=== PATIENT | female | born 1995 | race Caucasian/White ===

== ENCOUNTER 2017-01-07 06:03 | Emergency (ER) | payer MEDICAID ==
[~2017-01-07] VITALS: Ht 167.6 cm; Wt 70.0 kg
[~2017-01-07 06:03] MED LIST: POLY10O LEFT EYE
[2017-01-07 06:05] VITALS: BP 123/63; PULSE 116; RESP 16; TEMP 98
[2017-01-07 06:11] VITALS: O2SAT 98
[2017-01-07] MEDS ORDERED: ZOFR4TAB3 SL (10:05)
[2017-01-07] MEDS ORDERED: TRAM50TA PO (10:05)
[2017-01-07] MEDS ORDERED: NAPR500T PO (10:05)
[2017-01-07] MEDS ORDERED: CEPH-460 PO (10:05)
== END 2017-01-07 07:07 | disposition left against medical advice (07) ==
LOC: NED 06:03
DX: Z53.21 Procedure and treatment not carried out due to patient leaving prior to being seen by health care provider (principal)
CPT/HCPCS: 99281

== ENCOUNTER 2017-01-07 07:14 | Emergency (ER) | payer MEDICAID ==
[~2017-01-07] VITALS: Ht 157.5 cm; Wt 60.1 kg
[2017-01-07 07:15] VITALS: BP 118/72; PULSE 111; RESP 16; TEMP 99.3; O2SAT 97
[2017-01-07] MEDS ORDERED: ONDANSETRON HCL 4 MG/2 ML VIAL IVP ONE (07:45)
[2017-01-07] MEDS ORDERED: SODIUM CHLORIDE 0.9% FLUSH 10 ML FLUSH IV FLUSH PRN (07:45)
[2017-01-07] MEDS ORDERED: MORPHINE SULFATE 4 MG/ML INJ IV PUSH ONE ×2 (07:45→08:30)
[2017-01-07 07:57] VITALS: O2SAT 98
[2017-01-07 07:58] LABS: AUTOMATED NEUTROPHIL # 9.9 TH/MM3 (1.8-7.7); BASOPHIL # 0.1 TH/MM3 (0-0.2); BASOPHIL % 1.3 % (0.0-2.0); EOSINOPHIL % 0.3 % (0.0-4.0); LYMPH % 4.4 % (9.0-44.0); LYMPHOCYTE # 0.5 TH/MM3 (1.0-4.8); MEAN CELL VOLUME 93.3 FL (80.0-100.0); MEAN CORPUSCULAR HEMOGLOBIN 31.5 PG (27.0-34.0); MEAN CORPUSCULAR HGB CONC 33.7 % (32.0-36.0); MONO % 3.5 % (0.0-8.0); NEUT % 90.5 % (16.0-70.0); PLATELET COUNT 276 TH/MM3 (150-450); RED BLOOD COUNT 3.54 MIL/MM3 (4.00-5.30); RED CELL DISTRIBUTION WIDTH 12.4 % (11.6-17.2); WHITE BLOOD COUNT 10.9 TH/MM3 (4.0-11.0)
--- NOTE | 2017-01-07 07:58 | PD ---
HPI Chief Complaint: Back/ Neck Pain or Injury Time Seen by Provider: 07:26 Travel History International Travel<30 days: No Contact w/Intl Traveler<30days: No Traveled to known affect area: No History of Present Illness HPI This is a 21-year-old female who presents to the emergency department with right sided flank pain, constant for 2 days, worse with walking, severe, associated with nausea this morning. She denies any dysuria, hematuria, vaginal discharge, fevers or chills. She has had one sexual partner in the past 6 months. She's never had pain like this before. She denies any history of IV drug use. She denies any injury. PFSH Past Medical History Hx Anticoagulant Therapy: No Diabetes: No Immunizations Current: Yes ?: Unknown : 2 Para: 1 Social History Alcohol Use: No Tobacco Use: Yes (1/2 PPD) Substance Use: No Allergies-Medications (Allergen,Severity, Reaction): Coded Allergies: No Known Allergies (Unverified , 01/07/17) Reported Meds & Prescriptions Reported Meds & Active Scripts Active No Active Prescriptions or Reported Medications Review of Systems Except as stated in HPI: all other systems reviewed are Neg Physical Exam Narrative GENERAL: Uncomfortable appearing, tearful SKIN: Warm and dry. HEAD: Atraumatic. Normocephalic. EYES: Pupils equal and round. No injection or drainage. ENT: Moist mucous membranes NECK: Trachea midline. CARDIOVASCULAR: Regular rate and rhythm. No murmur appreciated. RESPIRATORY: Clear to auscultation. Breath sounds equal bilaterally. GASTROINTESTINAL: Abdomen soft, tender to palpation in the right lower quadrant and suprapubic region with no rebound or guarding. : Right CVA tenderness. MUSCULOSKELETAL: No obvious deformities. NEUROLOGICAL: Awake and alert. No obvious cranial nerve deficits. Moving all extremities. PSYCHIATRIC: Appropriate mood and affect; insight and judgment normal. Data Data Last Documented VS Vital Signs Date Time Temp Pulse Resp B/P Pulse Ox O2 Delivery O2 Flow Rate FiO2 01/07/17 09:48 98.8 95 18 138/48 98 Room Air Orders Complete Blood Count With Diff (01/07/17 07:31) Comprehensive Metabolic Panel (01/07/17 07:31) Urinalysis - C+S If Indicated (01/07/17 07:31) Iv Access Insert/Monitor (01/07/17 07:31) Ecg Monitoring (01/07/17 07:31) Oximetry (01/07/17 07:31) Morphine Inj (Morphine Inj) (01/07/17 07:45) Ondansetron Inj (Zofran Inj) (01/07/17 07:45) Sodium Chlor 0.9% 1000 Ml Inj (Ns 1000 M (01/07/17 07:31) Sodium Chloride 0.9% Flush (Ns Flush) (01/07/17 07:45) Ed Urine Pregnancytest Poc (01/07/17 07:31) Urine Culture (01/07/17 07:45) Ceftriaxone Inj (Rocephin Inj) (01/07/17 08:15) Morphine Inj (Morphine Inj) (01/07/17 08:30) Ketorolac Inj (Toradol Inj) (01/07/17 08:30) Labs Laboratory Tests Test 01/07/17 01/07/17 07:45 07:50 Urine Collection Type CLEAN CATCH Urine Color YELLOW Urine Turbidity MOD Urine pH 5.5 Urine Specific [place] 1.030 Urine Protein 100 mg/dL Urine Glucose (UA) 100 mg/dL Urine Ketones NEG mg/dL Urine Occult Blood LARGE Urine Nitrite POS Urine Bilirubin NEG Urine Leukocyte Esterase MOD Urine RBC 10-14 /hpf Urine WBC 100-200 /hpf Urine WBC Clumps MOD Urine Squamous Epithelial 0-5 /hpf Cells Urine Amorphous Sediment FEW Urine Bacteria MOD /hpf Microscopic Urinalysis Comment CULTURE INDICATED Urine Collection Time 0745 White Blood Count 10.9 TH/MM3 Red Blood Count 3.54 MIL/MM3 Hemoglobin 11.1 GM/DL Hematocrit 33.0 % Mean Corpuscular Volume 93.3 FL Mean Corpuscular Hemoglobin 31.5 PG Mean Corpuscular Hemoglobin 33.7 % Concent Red Cell Distribution Width 12.4 % Platelet Count 276 TH/MM3 Mean Platelet Volume 7.6 FL Neutrophils (%) (Auto) 90.5 % Lymphocytes (%) (Auto) 4.4 % Monocytes (%) (Auto) 3.5 % Eosinophils (%) (Auto) 0.3 % Basophils (%) (Auto) 1.3 % Neutrophils # (Auto) 9.9 TH/MM3 Lymphocytes # (Auto) 0.5 TH/MM3 Monocytes # (Auto) 0.4 TH/MM3 Eosinophils # (Auto) 0.0 TH/MM3 Basophils # (Auto) 0.1 TH/MM3 CBC Comment DIFF FINAL Differential Comment Sodium Level 142 MEQ/L Potassium Level 3.6 MEQ/L Chloride Level 110 MEQ/L Carbon Dioxide Level 22.5 MEQ/L Anion Gap 10 MEQ/L Blood Urea Nitrogen 10 MG/DL Creatinine 0.73 MG/DL Estimat Glomerular Filtration 99 ML/MIN Rate Random Glucose 151 MG/DL Calcium Level 8.8 MG/DL Total Bilirubin 0.5 MG/DL Aspartate Amino Transf 8 U/L (AST/SGOT) Alanine Aminotransferase 12 U/L (ALT/SGPT) Alkaline Phosphatase 50 U/L Total Protein 6.9 GM/DL Albumin 3.5 GM/DL [facility] Medical Decision Making Medical Screen Exam Complete: Yes Emergency Medical Condition: Yes Interpretation(s) Temperature is 99.3, tachycardia Mild anemia White count is 10.9 90% neutrophils Electrolytes are reassuring Urinalysis: Urinary tract infection Differential Diagnosis Pyelonephritis, nephrolithiasis, appendicitis, ectopic , ovarian cyst rupture Narrative Course This is a 21-year-old female who presents to the emergency department with right sided flank pain. She is placed on a monitor and an IV was established. Labs are obtained which are reassuring. Urinalysis confirms likely pyelonephritis. She is given a dose of IV ceftriaxone, IV hydration and antiemetics as well as 2 doses of pain control and feels much better. I reevaluated her several times. Patient will be discharged on oral antibiotics. I did instruct her that if she at all feels worse she should return to the emergency department. Diagnosis Primary Impression: Pyelonephritis Patient Instructions: General Instructions Additional Instructions: If you develop fever, persistent vomiting, back pain, or inability to eat return to the emergency department as your urine infection may have progressed to a kidney infection. Complete your antibiotics as prescribed. Stay well hydrated with Gatorade or water. Followup with your primary care physician in 2-3 days if your symptoms have not resolved. Med/Other Pt SpecificInfo: Prescription(s) given Scripts Naproxen 500 Mg [id number] Mg PO BID PRN (PAIN SCALE 4 TO 10) #10 TAB Ref 0 Prov:Trang Pearson MD 01/07/17 Tramadol 50 Mg Tab50 Mg PO Q6H PRN (PAIN) #10 TAB Ref 0 Prov:Trang Paerson MD 01/07/17 Ondansetron Odt (Zofran Odt)4 Mg Tab4 Mg SL Q6HR PRN (Nausea/Vomiting) #10 TAB Ref 0 Prov:Trang Pearson MD 01/07/17 Cephalexin (Keflex)500 Mg [id number] Mg PO Q12H 7 Days Ref 0 Prov:Trang Pearson MD 01/07/17 Disposition: 01 DISCHARGE HOME Condition: Stable Trang Pearson MD Jan 07, 2017 07:58
[2017-01-07 07:59] LABS: BLOOD, URINE LARGE (NEG); GLUCOSE,URINE 100 mg/dL (NEG); KETONE, URINE NEG (NEG); PH, URINE 5.5 (5.0-8.5)
[2017-01-07 08:00] LABS: NITRITE,URINE POS (NEG)
[2017-01-07] MEDS: SODIUM CHLOR 0.9% 1000 ML INJ 1,000 ML IV SCH ×2 (08:02→08:30)
[2017-01-07 08:03] LABS: HEMO FLAGS DIFF FINAL
[2017-01-07 08:07] LABS: CHLORIDE 110 MEQ/L (98-107); POTASSIUM 3.6 MEQ/L (3.5-5.1); SODIUM (NA) 142 MEQ/L (136-145)
[2017-01-07 08:07] LABS: METHOD OF COLLECTION CLEAN CATCH; URINE COLOR YELLOW (YELLW/STRAW)
[2017-01-07 08:08] LABS: BACTERIA, URINE MOD /hpf; COMMENT (UR) CULTURE INDICATED; CULTURE IF INDICATED CULTURE INDICATED; SQUAMOUS EPITHELIAL CELL URINE 0-5 /hpf (0-5); WBC, URINE 100-200 /hpf (0-5)
[2017-01-07 08:11] LABS: ANION GAP 10 MEQ/L (5-15); BICARBONATE 22.5 MEQ/L (21.0-32.0); BLOOD UREA NITROGEN 10 MG/DL (7-18)
[2017-01-07 08:14] LABS: ALT (GPT) 12 U/L (10-53); AST (GOT) 8 U/L (15-37); GLOMERULAR FILTRATION RATE 99 ML/MIN (>89)
[2017-01-07 08:15] LABS: TOTAL BILIRUBIN ADULT 0.5 MG/DL (0.2-1.0)
[2017-01-07] MEDS ORDERED: cefTRIAXone INJ 1,000 MG in SODIUM CHLORIDE 0.9% INJ 100 ML IV ONE (08:15)
[2017-01-07 08:17] LABS: ALKALINE PHOSPHATASE 50 U/L (45-117)
[2017-01-07] MEDS ORDERED: KETOROLAC TROMETHAMINE 30 MG/ML (IVP) VIAL IV PUSH ONE (08:30)
[2017-01-07 08:51] VITALS: BP 91/44; PULSE 74; RESP 18; O2SAT 98
[2017-01-07 09:48] VITALS: BP 138/48; PULSE 95; RESP 18; TEMP 98.8; O2SAT 98
[2017-01-07] MEDS ORDERED: CEPH-460 PO (10:05)
[2017-01-07] MEDS ORDERED: NAPR500T PO (10:05)
[2017-01-07] MEDS ORDERED: ZOFR4TAB3 SL (10:05)
[2017-01-07] MEDS ORDERED: TRAM50TA PO (10:05)
== END 2017-01-07 10:27 | disposition home or self-care (01) ==
LOC: PHEFT 07:14
DX: N12 Tubulo-interstitial nephritis, not specified as acute or chronic (principal); F17.210 Nicotine dependence, cigarettes, uncomplicated
CPT/HCPCS: 80053; 81001; 84703; 85025; 87077; 87086; 87186; 96361; 96365; 96375; 96376; 99284; J0696; J1885; J2270; J2405; J7030

== ENCOUNTER 2017-01-19 10:32 | Emergency (ER) | payer MEDICAID ==
[~2017-01-19] VITALS: Ht 157.5 cm; Wt 55.5 kg
[~2017-01-19 10:32] MED LIST changes: +CEPH-460 PO; +NAPR500T PO; -POLY10O LEFT EYE; +TRAM50TA PO; +ZOFR4TAB3 SL
[2017-01-19 10:36] VITALS: BP 97/66; PULSE 119; RESP 18; TEMP 100; O2SAT 98
[2017-01-19] MEDS ORDERED: SODIUM CHLOR 0.9% 1000 ML INJ 1,000 ML IV SCH (10:50)
[2017-01-19 10:58] LABS: BLOOD, URINE SMALL (NEG); GLUCOSE,URINE NEG (NEG); KETONE, URINE NEG (NEG); NITRITE,URINE NEG (NEG)
[2017-01-19] MEDS ORDERED: KETOROLAC TROMETHAMINE 30 MG/ML (IVP) VIAL IVP ONE (11:00)
[2017-01-19] MEDS ORDERED: ONDANSETRON HCL 4 MG/2 ML VIAL IVP ONE (11:00)
--- NOTE | 2017-01-19 11:00 | PD ---
HPI Chief Complaint: Flank/Kidney Pain Time Seen by Provider: 10:45 Travel History International Travel<30 days: No Contact w/Intl Traveler<30days: No Traveled to known affect area: No History of Present Illness HPI 21-year-old female complains of right flank pain. Patient states the pain started yesterday. Patient was seen in emergency room January 07, 2017 for right flank pain. Diagnosis was pyelonephritis. Patient was given IV Rocephin and prescription for Keflex, Naprosyn, tramadol and Zofran. Patient states that the symptoms resolved completely subsequently. Patient started having right flank pain since yesterday. Patient denies dysuria or frequency. Patient denies any fever chills. Patient denies any nausea vomiting diarrhea. Patient states that she has occasionally dry cough. Patient denies any vaginal discharge or bleeding. On a scale of 1-10 the pain is a 10. Urine culture last visit show positive for Escherichia coli which sensitive to all antibiotics. PFSH Past Medical History Hx Anticoagulant Therapy: No Diabetes: No Immunizations Current: Yes ?: Not LMP: 2 WEEKS AGO : 2 Para: 1 Social History Alcohol Use: No Tobacco Use: Yes (10/14 PPD) Substance Use: No Allergies-Medications (Allergen,Severity, Reaction): Coded Allergies: No Known Allergies (Unverified , 01/19/17) Reported Meds & Prescriptions Reported Meds & Active Scripts Active No Active Prescriptions or Reported Medications Review of Systems General / Constitutional: No: Fever Eyes: No: Visual changes HENT: No: Headaches Cardiovascular: No: Chest Pain or Discomfort Respiratory: No: Shortness of Breath Gastrointestinal: Positive: Abdominal Pain Genitourinary: No: Dysuria Musculoskeletal: No: Pain Skin: No Rash Neurologic: No: Weakness Psychiatric: No: Depression Endocrine: No: Polydipsia Hematologic/Lymphatic: No: Easy Bruising Physical Exam Narrative GENERAL: Well-nourished, well-developed patient. SKIN: Focused skin assessment warm/dry. HEAD: Normocephalic. EYES: No scleral icterus. No injection or drainage. NECK: Supple, trachea midline. No JVD or lymphadenopathy. CARDIOVASCULAR: Regular rate and rhythm without murmurs, gallops, or rubs. RESPIRATORY: Breath sounds equal bilaterally. No accessory muscle use. GASTROINTESTINAL: Abdomen soft, non-tender, nondistended. MUSCULOSKELETAL: No cyanosis, or edema. BACK: Nontender without obvious deformity. Patient had positive right CVA tenderness. Neurologic exam normal. Data Data Last Documented VS Vital Signs Date Time Temp Pulse Resp B/P Pulse Ox O2 Delivery O2 Flow Rate FiO2 01/19/17 12:11 94 18 100/53 97 Room Air 01/19/17 10:36 100.0 Orders Urinalysis - C+S If Indicated (01/19/17 10:42) Complete Blood Count With Diff (01/19/17 10:50) Comprehensive Metabolic Panel (01/19/17 10:50) Ct Abd/Pel W/O Iv Contrast (01/19/17 10:50) Iv Access Insert/Monitor (01/19/17 10:50) Ecg Monitoring (01/19/17 10:50) Oximetry (01/19/17 10:50) Ondansetron Inj (Zofran Inj) (01/19/17 11:00) Sodium Chlor 0.9% 1000 Ml Inj (Ns 1000 M (01/19/17 10:50) Ketorolac Inj (Toradol Inj) (01/19/17 11:00) Ed Urine Pregnancytest Poc (01/19/17 10:50) Drug Screen, Random Urine (01/19/17 10:50) Urine Culture (01/19/17 10:45) Labs Laboratory Tests Test 01/19/17 01/19/17 10:45 11:00 Urine Collection Type CLEAN CATCH Urine Color YELLOW Urine Turbidity SLIGHT Urine pH 6.0 Urine Specific [place] 1.020 Urine Protein 30 mg/dL Urine Glucose (UA) NEG mg/dL Urine Ketones NEG mg/dL Urine Occult Blood SMALL Urine Nitrite NEG Urine Bilirubin NEG Urine Leukocyte Esterase TRACE Urine RBC 10-14 /hpf Urine WBC 25-49 /hpf Urine WBC Clumps FEW Urine Squamous Epithelial 6-8 /hpf Cells Urine Amorphous Sediment FEW Urine Bacteria MOD /hpf Microscopic Urinalysis Comment CULTURE INDICATED Urine Collection Time 26890 Urine Opiates Screen NEG Urine Barbiturates Screen NEG Urine Amphetamines Screen NEG Urine Benzodiazepines Screen NEG Urine Cocaine Screen NEG Urine Cannabinoids Screen POS White Blood Count 17.1 TH/MM3 Red Blood Count 4.06 MIL/MM3 Hemoglobin 12.8 GM/DL Hematocrit 37.5 % Mean Corpuscular Volume 92.5 FL Mean Corpuscular Hemoglobin 31.6 PG Mean Corpuscular Hemoglobin 34.1 % Concent Red Cell Distribution Width 12.0 % Platelet Count 344 TH/MM3 Mean Platelet Volume 8.3 FL Neutrophils (%) (Auto) 85.2 % Lymphocytes (%) (Auto) 8.2 % Monocytes (%) (Auto) 4.8 % Eosinophils (%) (Auto) 0.2 % Basophils (%) (Auto) 1.6 % Neutrophils # (Auto) 14.6 TH/MM3 Lymphocytes # (Auto) 1.4 TH/MM3 Monocytes # (Auto) 0.8 TH/MM3 Eosinophils # (Auto) 0.0 TH/MM3 Basophils # (Auto) 0.3 TH/MM3 CBC Comment AUTO DIFF Differential Comment AUTO DIFF CONFIRMED Sodium Level 141 MEQ/L Potassium Level 3.5 MEQ/L Chloride Level 106 MEQ/L Carbon Dioxide Level 24.1 MEQ/L Anion Gap 11 MEQ/L Blood Urea Nitrogen 10 MG/DL Creatinine 1.00 MG/DL Estimat Glomerular Filtration 69 ML/MIN Rate Random Glucose 169 MG/DL Calcium Level 8.7 MG/DL Total Bilirubin 0.5 MG/DL Aspartate Amino Transf 7 U/L (AST/SGOT) Alanine Aminotransferase 15 U/L (ALT/SGPT) Alkaline Phosphatase 77 U/L Total Protein 8.5 GM/DL Albumin 4.1 GM/DL MDM Medical Decision Making Medical Screen Exam Complete: Yes Emergency Medical Condition: Yes Interpretation(s) 11:17 AM. Urine test negative. UA positive with WBC and RBC and bacteria. 11:57 AM. CBC WBC 17.1. 85 neutrophil. CMP within normal limit. Urine drug screen positive for cannabis. 1229 PM. Last Impressions Abdomen/Pelvis CT 01/19/17 1050 Signed Impressions: Service Date/Time: Thursday, January 19, 2017 11:33 - CONCLUSION: Slight right-sided perinephric stranding and slight effacement of the right renal sinus fat which may reflect inflammation or fracture of a recently passed renal stone. There is no current evidence of hydronephrosis or stones within the collecting system. No evidence of appendicitis.. Goldie Martines MD Differential Diagnosis Differential diagnosis including musculoskeletal, pyelonephritis, nephrolithiasis, colitis, cholecystitis, pancreatitis. Narrative Course 21-year-old female with right flank pain. History of recently treated for pyelonephritis. Normal saline solution 1 L IV bolus. Toradol 30 mg IV. Zofran 4 mg IV. Rocephin 1 g IV given. Patient was advised to be admitted for IV antibiotics and IV fluid. Patient refused admission. Patient wants to go home. Diagnosis Primary Impression: Pyelonephritis Patient Instructions: General Instructions Additional Instructions: Take medications as directed. Follow-up with local physician. Patient may return in 2 days for recheck if unable to find a physician for follow-up. Med/Other Pt SpecificInfo: Prescription(s) given Scripts Cephalexin (Keflex)500 Mg [id number] Mg PO Q6H #40 CAP Ref 0 Prov:Prashanth Manzanares MD 01/19/17 Promethazine (Phenergan)25 Mg Tab25 Mg PO Q6H PRN (Nausea/Vomiting) #10 TAB Ref 0 Prov:Prashanth Manzanares MD 01/19/17 Tramadol (Ultram)50 Mg Tab50 Mg PO Q6H PRN (PAIN) #20 TAB Prov:Prashanth Manzanares MD 01/19/17 Sulfamethoxazole-Trimethoprim (Bactrim DS)800-160 Mg Tab1 Tab PO BID #20 TAB Prov:Prashanth Manzanares MD 01/19/17 Disposition: 01 DISCHARGE HOME Condition: Stable Prashanth Manzanares MD Jan 19, 2017 11:00
[2017-01-19 11:02] LABS: METHOD OF COLLECTION CLEAN CATCH; URINE COLOR YELLOW (YELLW/STRAW)
[2017-01-19 11:03] LABS: BACTERIA, URINE MOD /hpf; COMMENT (UR) CULTURE INDICATED; CULTURE IF INDICATED CULTURE INDICATED
[2017-01-19 11:10] VITALS: RESP 20; O2SAT 98
[2017-01-19 11:11] LABS: AMPHETAMINE, URINE NEG (NEG); BARBITURATES, URINE NEG (NEG)
[2017-01-19 11:12] LABS: AUTOMATED NEUTROPHIL # 14.6 TH/MM3 (1.8-7.7); BASOPHIL # 0.3 TH/MM3 (0-0.2); BASOPHIL % 1.6 % (0.0-2.0); EOSINOPHIL % 0.2 % (0.0-4.0); HEMATOCRIT 37.5 % (35.0-46.0); LYMPH % 8.2 % (9.0-44.0); LYMPHOCYTE # 1.4 TH/MM3 (1.0-4.8); MEAN CELL VOLUME 92.5 FL (80.0-100.0); MEAN CORPUSCULAR HEMOGLOBIN 31.6 PG (27.0-34.0); MEAN CORPUSCULAR HGB CONC 34.1 % (32.0-36.0); MONO % 4.8 % (0.0-8.0); NEUT % 85.2 % (16.0-70.0); PLATELET COUNT 344 TH/MM3 (150-450); RED BLOOD COUNT 4.06 MIL/MM3 (4.00-5.30); WHITE BLOOD COUNT 17.1 TH/MM3 (4.0-11.0)
[2017-01-19 11:17] LABS: CHLORIDE 106 MEQ/L (98-107); POTASSIUM 3.5 MEQ/L (3.5-5.1); SODIUM (NA) 141 MEQ/L (136-145)
[2017-01-19 11:18] LABS: HEMO FLAGS AUTO DIFF
[2017-01-19 11:19] LABS: COCAINE, URINE NEG (NEG)
[2017-01-19 11:21] LABS: ANION GAP 11 MEQ/L (5-15); BICARBONATE 24.1 MEQ/L (21.0-32.0); BLOOD UREA NITROGEN 10 MG/DL (7-18)
[2017-01-19 11:24] LABS: ALT (GPT) 15 U/L (10-53); AST (GOT) 7 U/L (15-37); GLOMERULAR FILTRATION RATE 69 ML/MIN (>89)
[2017-01-19 11:25] LABS: TOTAL BILIRUBIN ADULT 0.5 MG/DL (0.2-1.0)
[2017-01-19 11:27] LABS: ALKALINE PHOSPHATASE 77 U/L (45-117)
[2017-01-19 11:32] LABS: SCAN/DIFF AUTO DIFF CONFIRMED
[2017-01-19 12:11] VITALS: BP 100/53; PULSE 94; RESP 18; O2SAT 97
--- NOTE | 2017-01-19 12:13 | RADHPO ---
EXAM DATE/TIME: 01/19/2017 11:33 [facility] COMPARISON: No previous studies available for comparison. INDICATIONS : Right flank pain. ORAL CONTRAST: No oral contrast ingested. RADIATION DOSE: 6.77 CTDIvol (mGy) MEDICAL HISTORY : None SURGICAL HISTORY : None. ENCOUNTER: Initial ACUITY: 1 day PAIN SCALE: 7/10 LOCATION: Right flank TECHNIQUE: Volumetric scanning of the abdomen and pelvis was performed. Using automated exposure control and ad justment of the mA and/or kV according to patient size, radiation dose was kept as low as reasonably achievable to obtain optimal diagnostic quality images. FINDINGS: LOWER LUNGS: The visualized lower lungs are clear. LIVER: Homogeneous density without lesion. There is no dilation of the biliary tree. No calcified gallston es. SPLEEN: Normal size without lesion. PANCREAS: Within normal limits. KIDNEYS: Normal in size and shape. There is slight right-sided perinephric stranding and slight effacement of the renal fossa as compared to the left kidney. This may reflect either infection or recent passage o f a stone. No current evidence of renal stones or stones within the ureters. ADRENAL GLANDS: Within normal limits. VASCULAR: There is no aortic aneurysm. BOWEL/MESENTERY: The stomach, small bowel, and colon demonstrate no acute abnormality. There is no free intraperitone al air or fluid. ABDOMINAL WALL: Within normal limits. RETROPERITONEUM: There is no lymphadenopathy. BLADDER: No wall thickening or mass. REPRODUCTIVE: Within normal limits. INGUINAL: There is no lymphadenopathy or hernia. MUSCULOSKELETAL: Within normal limits for patient age. CONCLUSION: Slight right-sided perinephric stranding and slight effacement of the right renal sinus fat which may reflect inflammation or fracture of a recently passed renal stone. There is no current evidence of h ydronephrosis or stones within the collecting system. No evidence of appendicitis.. Goldie Martines MD on January 19, 2017 at 12:08 Board Certified Radiologist. This report was verified electronically.
[2017-01-19] MEDS ORDERED: BACT800T5 PO (12:37)
[2017-01-19] MEDS ORDERED: ULTR50TA5 PO (12:37)
[2017-01-19] MEDS ORDERED: PROM25TA5 PO (12:37)
[2017-01-19] MEDS ORDERED: CEPH-460 PO (12:38)
[2017-01-19] MEDS ORDERED: cefTRIAXone INJ 1,000 MG in SODIUM CHLORIDE 0.9% INJ 100 ML IV ONE (12:45)
[2017-01-19 13:12] VITALS: BP 102/57; PULSE 94; RESP 18; O2SAT 98
== END 2017-01-19 13:47 | disposition home or self-care (01) ==
LOC: PHED 10:32
DX: N12 Tubulo-interstitial nephritis, not specified as acute or chronic (principal); B96.20 Unspecified Escherichia coli [E. coli] as the cause of diseases classified elsewhere
CPT/HCPCS: 74176; 80053; 80307; 81001; 84703; 85025; 87077; 87086; 87186; 96361; 96365; 96375; 99284; J0696; J1885; J2405; J7030

== ENCOUNTER 2017-12-11 07:45 | Emergency (ER) | payer SELFPAY ==
[~2017-12-11] VITALS: Ht 157.5 cm; Wt 55.1 kg
[~2017-12-11 07:45] MED LIST changes: +BACT800T5 PO; -NAPR500T PO; +PROM25TA5 PO; +TRAM50 PO; -TRAM50TA PO; -ZOFR4TAB3 SL
[2017-12-11 07:49] VITALS: BP 139/73; PULSE 97; RESP 16; TEMP 98.6; O2SAT 99
[2017-12-11] MEDS ORDERED: oxyCODONE/ACETAMINOPHEN 5 MG/325 MG TAB PO ONE (08:15)
[2017-12-11] MEDS ORDERED: PENI500T PO (08:15)
[2017-12-11] MEDS ORDERED: HYDR-2376 PO (08:15)
[2017-12-11] MEDS ORDERED: PENICILLIN V POTASSIUM 500 MG TAB PO ONE (08:15)
--- NOTE | 2017-12-11 08:16 | PD ---
HPI Chief Complaint: Oral / Dental Pain or Problem Time Seen by Provider: 08:03 Travel History International Travel<30 days: No Contact w/Intl Traveler<30days: No Traveled to known affect area: No History of Present Illness HPI This 22-year-old female is complaining of severe pain in the right jaw. She has a tooth that is been a problem through the years. It started hurting yesterday and today the pain is quite severe. The pain is constant PFSH Past Medical History Hx Anticoagulant Therapy: No Diabetes: No Immunizations Current: Yes Influenza Vaccination: No ?: Not LMP: 11/22/17 : 2 Para: 1 Social History Alcohol Use: No Tobacco Use: Yes (10/14 PPD) Substance Use: No Allergies-Medications (Allergen,Severity, Reaction): Coded Allergies: No Known Allergies (Unverified Adverse Reaction, Unknown, 12/11/17) Reported Meds & Prescriptions Reported Meds & Active Scripts Active No Active Prescriptions or Reported Medications Review of Systems Except as stated in HPI: all other systems reviewed are Neg General / Constitutional: No: Fever, Chills Eyes: No: Diploplia HENT: Positive: Dental Difficulties, No: Headaches Cardiovascular: No: Chest Pain or Discomfort Gastrointestinal: No: Vomiting, Diarrhea Neurologic: No: Syncope Physical Exam Narrative GENERAL: Well-developed female. She is in considerable pain SKIN: Focused skin assessment warm/dry. HEAD: Atraumatic. Normocephalic. EYES: Pupils equal and round. No scleral icterus. No injection or drainage. ENT: No nasal bleeding or discharge. Mucous membranes pink and moist. Tooth # 28 is extremely carious necrotic. The surrounding gum is swollen and erythematous NECK: Trachea midline. No JVD. CARDIOVASCULAR: Regular rate and rhythm. No murmur appreciated. MUSCULOSKELETAL: No obvious deformities. No clubbing. No cyanosis. No edema. NEUROLOGICAL: Awake and alert. No obvious cranial nerve deficits. Motor grossly within normal limits. Normal speech. PSYCHIATRIC: Appropriate mood and affect; insight and judgment normal. Data Data Last Documented VS Vital Signs Date Time Temp Pulse Resp B/P (MAP) Pulse Ox O2 Delivery O2 Flow Rate FiO2 12/11/17 07:49 98.6 97 16 139/73 (95) 99 Orders Orders Penicillin V Potassium (Veetids) (12/11/17 08:15) Oxycodone-Acetamin 5-325 Mg (Percocet (12/11/17 08:15) MDM Medical Decision Making Medical Screen Exam Complete: Yes Emergency Medical Condition: Yes Medical Record Reviewed: Yes Differential Diagnosis Differential includes dental abscess, tooth caries Narrative Course Patient will be placed on penicillin and Lortab. The importance of dental follow-up was stressed to the patient Diagnosis Primary Impression: Dental abscess Scripts Hydrocodone-Acetaminophen (Hydrocodone-Acetaminophen) 7.5-300 Mg Tab 1 TAB PO Q4H Y for PAIN, #15 TAB 0 Refills Prov: Mendez Vasquez MD 12/11/17 Penicillin V Potassium (Penicillin V Potassium) 500 Mg Tab 500 MG PO Q6H for Infection for 10 Days, #40 TAB 0 Refills Prov: Mendez Vasquez MD 12/11/17 Disposition: 01 DISCHARGE HOME Condition: Stable Mendez Vasquez MD Dec 11, 2017 08:16
[2017-12-11 09:14] VITALS: BP 119/69
== END 2017-12-11 09:16 | disposition home or self-care (01) ==
LOC: PHED 07:45
DX: K04.7 Periapical abscess without sinus (principal); F17.210 Nicotine dependence, cigarettes, uncomplicated
CPT/HCPCS: 99283

== ENCOUNTER 2017-12-21 18:51 | Emergency (ER) | payer OTHER ==
[~2017-12-21] VITALS: Ht 157.5 cm; Wt 52.0 kg
[~2017-12-21 18:51] MED LIST changes: -BACT800T5 PO; -CEPH-460 PO; +HYDR-2376 PO; +PENI500T PO; -PROM25TA5 PO; -TRAM50 PO
[2017-12-21 19:00] VITALS: BP 127/68; PULSE 107; RESP 20; TEMP 97.9; O2SAT 98
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
[2017-12-21 20:05] VITALS: BP 115/81; PULSE 103; RESP 18; O2SAT 100
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
[2017-12-21] MEDS ORDERED: IBUPROFEN 600 MG TAB PO ONE (20:30)
[2017-12-21] MEDS ORDERED: CYCLOBENZAPRINE HCL 10 MG TAB PO ONE (20:30)
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
[2017-12-21] MEDS ORDERED: CYCL10TA PO (21:05)
[2017-12-21] MEDS ORDERED: IBUP-232 PO (21:05)
== END 2017-12-21 21:23 | disposition home or self-care (01) ==
LOC: PHED 18:51
DX: S12.100A Unspecified displaced fracture of second cervical vertebra, initial encounter for closed fracture (principal); M54.9 Dorsalgia, unspecified; V49.49XA Driver injured in collision with other motor vehicles in traffic accident, initial encounter; V47.5XXA Car driver injured in collision with fixed or stationary object in traffic accident, initial encounter; Z72.0 Tobacco use
CPT/HCPCS: 70450; 71045; 72040; 72125; 84703; 99284